=== PATIENT | female | born 1995 | race Asian ===

== ENCOUNTER 2021-07-10 03:14 | Inpatient (IN) ==
[2021-07-10] MEDS ORDERED: OXYTOCIN 30 UNITS/500 ML BAG IV PRN ×3 (03:43→16:51)
[2021-07-10] MEDS ORDERED: SODIUM CHLORIDE 0.9% INJ 10 ML VIAL ONE (04:00)
[2021-07-10] MEDS ORDERED: BUPIVACAINE 0.25% 30 ML VIAL ONE (04:00)
[2021-07-10] MEDS ORDERED: ePHEDrine sulfate 50 MG/ML AMP ONE (04:00)
[2021-07-10] MEDS: LACTATED RINGER'S 1,000 ML IV PRN ×3 (04:00→14:01)
[2021-07-10] MEDS ORDERED: fentaNYL citrate 100 MCG/2 ML VIAL ONE (04:00)
[2021-07-10] MEDS ORDERED: fentaNYL 2MCG/ML ROPIVACAINE 1.25MG/ML 100 ML BAG EPI ONE (04:01)
[2021-07-10 04:15] LABS: Hematocrit (blood only) 33.5 % (37-47); Hemoglobin 10.9 g/dL (12.0-16.0); Mean Corpuscular Hemoglobin 31.7 pg (25-34); Mean Corpuscular Hgb Conc 32.5 g/dL (32-36); Mean Corpuscular Volume 97.4 fL (80-100); Platelet Count 246 K/uL (130-400); RDW Coefficient of Variation 13.9 % (11.5-14.5); RDW Standard Deviation 49.5 fL (36.4-46.3); Red Blood Count 3.44 M/uL (4.2-5.4); White Blood Count 8.51 K/uL (4.8-10.8)
[2021-07-10] MEDS ORDERED: ONDANSETRON INJ 2 MG/ML 2 ML VIAL IV PRN (04:56)
[2021-07-10] MEDS ORDERED: NALBUPHINE HCL INJ 10 MG/ML AMP IV PRN (04:56)
[2021-07-10] MEDS ORDERED: NALOXONE HCL 1 MG in SODIUM CHLORIDE 0.9% 1000ML 1,000 ML IV PRN (04:56)
[2021-07-10] MEDS ORDERED: diphenhydrAMINE 50 MG/ML VIAL IV PRN (04:56)
[2021-07-10] MEDS ORDERED: fentaNYL 2MCG/ML ROPIVACAINE 1.25MG/ML 100 ML BAG EPI PRN (04:56)
[2021-07-10] MEDS ORDERED: PROMETHAZINE HCL 6.25 MG in SODIUM CHLORIDE 0.9% 50 ML IV PRN (04:56)
[2021-07-10] MEDS ORDERED: NALOXONE HCL 0.4 MG/1 ML VIAL/CARP IV PRN (04:56)
[2021-07-10] MEDS ORDERED: ePHEDrine sulfate 50 MG/ML AMP IV PRN (04:56)
--- NOTE | 2021-07-10 04:56 | Anesthesiology Consultation ---
Date of Service July 10, 2021 Assessment & Plan (1) Encounter for pre-operative examination: Chart Review Chart Review: Patient NOT seen in Pre Admission Testing and Acceptable Risk for Labor Epidural Consults Requested none ASA ASA2 Proposed Anesthesia Anesthesia Type: Labor Epidural Risk / Benefits Reviewed With: PT / POA / Parent / Guardian, Accepts Plan and Informed Consent Obtained History Height/Weight Height: 5 ft 4 in Weight: 60.781 kg Allergies Allergy/AdvReac Type Severity Reaction Status Date / Time No Known Allergies Allergy Verified 07/05/21 09:33 Medications Home Medications Medication Instructions Recorded Confirmed Last Taken vit no.105-iron 30 1 pkg 07/10/21 07/09/21 mg-folic acid 1.4 mg-dha 300 mg oral pack Active Medications Generic Name Dose Route Start Last Admin Trade Name Freq PRN Reason Stop Dose Admin Lactated Ringer's 1,000 mls @ 125 mls/hr 07/10/21 03:43 07/10/21 04:00 Lr IV 07/12/21 03:42 999 mls/hr .Q8H PRN Administration L&D Protocol Protocol Past Medical History Medical History (Updated 07/10/21 @ 04:55 by Wyatt Jimenez MD) No known problems Exercise / Class Metabolic Activity II 4-5 Yardwork/Stairs/Walk up hill Past Family History Family History Other No known problems Past Anesthesia History No Hx of Anesthesia Complications and No Family Hx of Anesthesia Complications History of PONV No Hx of PONV and No Hx of Motion Sickness Social History Smoking Status: Never smoker Hx Alcohol Use: No Hx Substance Use: No Physical Exam Vital Signs Last Vital Signs Temp 36.4 C L 07/10/21 03:56 Pulse 70 07/10/21 04:52 Resp 18 07/10/21 03:56 BP 86/56 L 07/10/21 04:52 Pulse Ox 100 07/10/21 04:49 ENMT Mouth: no dentition abnormality Thyromental Distance: > or= 3.5 Finger Breadths Mallampati Class: II Neck normal visual inspection Respiratory normal respiratory effort Auscultation: lungs clear to auscultation bilaterally Cardiovascular Rate/Rhythm: regular rate and regular rhythm Psychiatric Orientation: alert Testing Laboratory Results 07/10/21 04:06
--- NOTE | 2021-07-10 10:31 | Labor Progress Brief Note ---
Date of Service July 10, 2021 Arrived at 5 years in active labor at 40 weeks 5 days gestation group B strep negative at 7 in the morning her membranes were ruptured artificially and she was 7 cm she had an epidural at that stage subsequently restarted Pitocin as her contraction pattern space she has now a room at 0 station heart rate category 1 Assessment & Plan Admission and Anticipated Discharge Date Admission Date: July 10, 2021 Results & Data ([facility] Vital Signs (Past 12 Hours) Vital Signs Temp Pulse Resp BP Pulse Ox 07/10/21 10:24 64 99 07/10/21 10:19 65 98 07/10/21 10:18 63 99/60 L 07/10/21 10:15 18 07/10/21 10:14 64 98 07/10/21 10:09 63 98 07/10/21 10:04 65 99 07/10/21 10:03 62 101/61 07/10/21 10:00 18 07/10/21 09:59 75 99 07/10/21 09:54 63 98 07/10/21 09:49 62 98 07/10/21 09:48 65 97/59 L 07/10/21 09:45 18 07/10/21 09:44 63 97 07/10/21 09:39 62 98 07/10/21 09:34 58 L 98 07/10/21 09:33 60 98/59 L 07/10/21 09:30 18 07/10/21 09:29 62 100 07/10/21 09:24 78 99 07/10/21 09:19 70 98 07/10/21 09:18 65 100/61 07/10/21 09:15 18 07/10/21 09:14 66 99 07/10/21 09:09 69 98 07/10/21 09:04 67 95/65 L 98 07/10/21 09:00 18 07/10/21 08:59 67 99 07/10/21 08:54 65 97 07/10/21 08:49 66 101/62 99 07/10/21 08:45 18 07/10/21 08:44 67 97 07/10/21 08:39 63 100 07/10/21 08:34 63 100 07/10/21 08:33 66 97/65 L 07/10/21 08:30 18 07/10/21 08:29 62 100 07/10/21 08:24 69 98 07/10/21 08:19 70 100 07/10/21 08:18 60 104/62 07/10/21 08:15 18 07/10/21 08:14 66 99 07/10/21 08:09 67 99 07/10/21 08:04 66 99 07/10/21 08:03 61 103/60 07/10/21 08:00 18 07/10/21 07:59 67 98 07/10/21 07:54 67 99 07/10/21 07:49 71 99/57 L 99 07/10/21 07:45 18 07/10/21 07:44 68 100 07/10/21 07:39 69 99 07/10/21 07:34 69 99 07/10/21 07:33 62 100/66 07/10/21 07:30 18 07/10/21 07:29 66 100 07/10/21 07:24 77 100 07/10/21 07:20 68 93/57 L 07/10/21 07:19 98.2 F 73 18 99/62 L 100 07/10/21 07:14 64 18 99 07/10/21 07:09 83 100 07/10/21 07:04 77 100 07/10/21 07:03 78 99/57 L 07/10/21 06:59 73 99 07/10/21 06:54 67 99 07/10/21 06:49 69 99 07/10/21 06:48 69 100/60 07/10/21 06:44 68 99 07/10/21 06:39 69 99 07/10/21 06:34 69 99 07/10/21 06:33 80 95/59 L 07/10/21 06:29 69 99 07/10/21 06:24 71 98 07/10/21 06:19 69 99 07/10/21 06:18 69 100/61 07/10/21 06:14 78 100 07/10/21 06:09 79 99 07/10/21 06:04 74 101/59 L 99 07/10/21 05:59 67 99 07/10/21 05:54 74 100 07/10/21 05:49 78 100 07/10/21 05:48 71 97/56 L 07/10/21 05:44 67 100 07/10/21 05:39 68 99 07/10/21 05:34 65 99 07/10/21 05:31 66 104/58 L 07/10/21 05:29 64 100 07/10/21 05:25 68 110/60 07/10/21 05:24 71 99 07/10/21 05:20 73 103/63 07/10/21 05:19 69 99 07/10/21 05:14 81 100 07/10/21 05:13 65 118/68 07/10/21 05:11 67 115/65 07/10/21 05:09 65 120/61 100 07/10/21 05:07 67 116/62 07/10/21 05:05 66 118/56 L 07/10/21 05:04 76 100 07/10/21 05:03 64 116/62 07/10/21 05:02 80 160/69 H 07/10/21 04:59 78 90/62 L 100 07/10/21 04:57 74 81/50 L 07/10/21 04:55 65 85/54 L 07/10/21 04:54 67 100 07/10/21 04:52 70 86/56 L 07/10/21 04:49 76 107/52 L 100 07/10/21 04:47 78 105/55 L 07/10/21 04:45 71 92/53 L 07/10/21 04:44 71 100 07/10/21 04:43 80 93/53 L 07/10/21 04:41 69 93/54 L 07/10/21 04:39 76 100 07/10/21 03:56 97.5 F L 66 18 107/64 07/10/21 03:33 97.5 F L 66 18 107/64 Coding Level of Care Code None
--- NOTE | 2021-07-10 15:39 | Delivery Summary ---
Vaginal Delivery Summary Date of Service July 10, 2021 Vaginal Delivery Summary VAVD Patient pushing for several hours and was lines +2 patient reached exhaustion I offered a vacuum assistance and the patient agreed her bladder benign emptied 45 minutes earlier I checked the position was occiput anterior +2 station there was some minor caput but no signs of significant capsular pelvic disproportion the vacuum was applied on one pole I was able to move the head to the point of de livery at the perineum there was a tight fit there so a small right medial lateral episiotomy was performed baby was then delivered on that same pole with the vacuum vacuum was detached mouth and nares then nares suctioned baby was delivered by gentle traction there was a loose body cord passed over the baby's head live vigorous female infant cord clamped and cut cord gases obtained cord blood obtained placenta removed with traction IV Pitocin started right medial lateral episiotomy repaired with 3-0 Vicryl oxytocin was started and hemostasis improved uterine tone improved sponge and instrument counts correct estimated blood loss 250 mL [facility] Vaginal Delivery Charge Vaginal Delivery Codes: 44391 global code for the antepartum, delivery, and post- Delivery Type Details: VAVD Procedure Anesthesia type: Epidural
[2021-07-10 15:57] LABS: Base Excess Cord Arterial Bld -3.2 mEq/L (-9-1.8); CO2 Cord Arterial Blood 42 mmHg (39.1-73.5); HCO3 Cord Arterial Blood 22 mmol/L (19.7-28.5); PO2 Cord Arterial Blood 27 mmHg (4.1-31.7); pH Cord Arterial Blood 7.35 (7.1-7.38)
[2021-07-10 16:01] LABS: Base Excess Cord Venous Blood -3.2 mEq/L (-7.7-1.9); Cord Venous Blood HCO3 21 mmol/L (18.4-26.8); Cord Venous Blood PCO2 34 mmHg (30.4-57.2); Cord Venous Blood PO2 37 mmHg (14.1-43.3)
[2021-07-10 16:03] LABS: Oxygen Sat Cord Arterial Blood < 60.0 % (<60)
--- NOTE | 2021-07-10 16:37 | Anesthesia Procedure Note ---
Date of Service July 10, 2021 Anesthesia Post Epidural Note Vital Signs Vital Signs: Temp Pulse Resp BP Pulse Ox 37.6 C H 76 18 103/56 L 95 07/10/21 15:12 07/10/21 16:33 07/10/21 15:50 07/10/21 16:33 07/10/21 15:27 Pain Intensity Lower Abdomen: Pain Intensity: 6 Notes Mental Status: alert / awake / arousable and participated in evaluation Nausea / Vomiting: adequately controlled Pain: adequately controlled Airway Patency, RR, SpO2: stable & adequate BP & HR: stable & adequate Hydration State: stable & adequate Neuraxial Anesthesia: was administered and sensory block is resolving Anesthetic Complications: no major complications apparent Epidural: Removed without complications and With tip intact
[2021-07-10] MEDS ORDERED: BENZOCAINE 20% AER SPR 82.5 GM CAN EXT PRN (16:51)
[2021-07-10] MEDS ORDERED: oxyCODONE/ACETAMINOPHEN 5mg/325mg TAB PO PRN (16:51)
[2021-07-10] MEDS ORDERED: ACETAMINOPHEN 325 MG TAB PO PRN (16:51)
[2021-07-10] MEDS ORDERED: SUPERCREAM 0.870% 15 GM JAR EXT PRN (16:51)
[2021-07-10] MEDS ORDERED: HYDROCORTISONE ACETATE 25 MG SUPP PR PRN (16:51)
[2021-07-10] MEDS ORDERED: DIPHTHERIA/TETANUS/PERTUSSIS 0.5 ML SYR/VIAL IM ONE (16:51)
[2021-07-10] MEDS: DOCUSATE SODIUM 100 MG CAP PO SCH (20:19)
--- NOTE | 2021-07-11 06:51 | Obstetrical Progress Note ---
Date of Service July 11, 2021 Assessment & Plan (1) Encounter for care and examination after delivery: Plan: 26yo PPD 1 s/p VAVD at 41 weeks -Continue routine care -Vitals reviewed- afebrile, continue to monitor BP -Encourage ambulation, regular diet -Pain control with ibuprofen, acetaminophen PRN -Encourage -Hgb yesterday 10.9 -discharge likely tomorrow, will continue to monitor today Admission and Anticipated Discharge Date Admission Date: July 10, 2021 Supervising Physician Co-Signing Physician Notes Resident Physician Supervision Note: I was present with [Name of resident] during the history and exam. I discussed the case with the resident and agree with the findings and plan as documented in the note. Any exceptions or clarifications are listed here: [None] Documented By: Little Francois MD, FACOG Subjective PPD 1 s/p VAVD. Patient seen and examined at bedside. Reports no acute overnight events. Not yet ambulating. Voiding, passing stool and gas without complaints. Regular diet w/o N/V. Some bleeding, but less than yesterday. Breast Feeding. Moderate pelvic pain, especially near stitch site. Review of Systems Review of Systems: Denies fevers/chills. Denies dyspnea, cough. Denies chest pain. Denies breast pain or discharge. Denies dysuria. Denies headache. Denies back pain. Physical Exam Physical Exam: General: Alert, oriented, no acute distress Cardiac: Regular rate and rhythm, normal S1, S2. No murmurs appreciated. Respiratory: Clear to auscultation b/l with good air flow entry, symmetric chest rise and fall. No wheezes or crackles. No increased work of breathing or accessory muscle use Abdomen: Soft, mildly TTP, nondistended. Fundus firm and palpable at 1 cm below umbilicus. No guarding or rebound. Skin: No rashes or lesions. Extremities: Warm, dry, well-perfused with capillary refill <2s b/l. No lower extremity edema, erythema or swelling. Negative Najma's sign b/l. Results & Data ([facility]) Vital Signs (Past 12 Hours) Vital Signs Temp Pulse Resp BP Pulse Ox 07/11/21 03:20 36.6 C 89 18 92/52 L 99 07/10/21 23:50 37.0 C 84 18 93/60 L 99 07/10/21 19:25 37.5 C 91 H 18 99/67 L 99 Resident Activity Tracking Resident Involvement: Resident Care Provided Care Provided: OB Delivery
[2021-07-11 07:14] LABS: Hematocrit (blood only) 26.1 % (37-47); Hemoglobin 8.7 g/dL (12.0-16.0); Mean Corpuscular Hemoglobin 31.8 pg (25-34); Mean Corpuscular Hgb Conc 33.3 g/dL (32-36); Mean Corpuscular Volume 95.3 fL (80-100); Mean Platelet Volume 10.2 fL (7.4-10.4); Platelet Count 211 K/uL (130-400); RDW Coefficient of Variation 14.1 % (11.5-14.5); RDW Standard Deviation 48.7 fL (36.4-46.3); Red Blood Count 2.74 M/uL (4.2-5.4); White Blood Count 15.63 K/uL (4.8-10.8)
[2021-07-11] MEDS: PRENATAL VITAMIN 1 TAB PO SCH (07:57)
[2021-07-11] MEDS: DOCUSATE SODIUM 100 MG CAP PO SCH ×2 (07:57→19:36)
[2021-07-11] MEDS: IBUPROFEN 600 MG TAB PO PRN ×2 (09:55→19:36)
--- NOTE | 2021-07-11 12:01 | Obstetrical Progress Note ---
Date of Service July 11, 2021 Assessment & Plan (1) Encounter for care and examination after delivery: Plan: Does not look like hematoma but L labia does appear more swollen. Given pain, will obtain CBC however encourage pain medication and ice as well as has not really used any of it thus far. Will recheck following return of labs Admission and Anticipated Discharge Date Admission Date: July 10, 2021 Subjective Nursing noted that pt had increased pain on bottom from this AM. Nursing also noted that swelling had increased on L vulva compared to this AM when it was more even. Pt notes more pain on the L side as well, has not taken much in terms of pain meds or ice packs. Delivery was c/b R mediolateral epis from [facility] Physical Exam Genitourinary: L labia majora does appear more swollen than R, still soft though. Does not appear to be bruised, palpation on inside of vagina with the labia does not palpate mass within the labia. Results & Data ([facility]) Vital Signs (Past 12 Hours) Vital Signs Temp Pulse Resp BP Pulse Ox 07/11/21 07:15 98.4 F 82 18 92/55 L 07/11/21 03:20 97.9 F 89 18 92/52 L 99 PG Care Time/CCT Total # of Minutes Spent Total Time Spent with Patient: Total time spent is greater than 50% in coordination of care (as documented) at patient's floor/unit and/or counseling patient: Coding Level of Care Code None Diagnoses Encounter for care and examination after delivery Z39.2
[2021-07-11 12:31] LABS: Hematocrit (blood only) 27.4 % (37-47); Hemoglobin 9.1 g/dL (12.0-16.0); Mean Corpuscular Volume 96.5 fL (80-100); Mean Platelet Volume 9.9 fL (7.4-10.4); Platelet Count 217 K/uL (130-400); RDW Standard Deviation 49.1 fL (36.4-46.3); Red Blood Count 2.84 M/uL (4.2-5.4); White Blood Count 15.09 K/uL (4.8-10.8)
[2021-07-11 12:37] LABS: Mean Corpuscular Hgb Conc 33.2 g/dL (32-36)
--- NOTE | 2021-07-11 14:03 | Obstetrical Progress Note ---
Date of Service July 11, 2021 Assessment & Plan (1) Encounter for care and examination after delivery: Plan: Feeling much better, CBC reassuring. Continue ice packs, pain control Admission and Anticipated Discharge Date Admission Date: July 10, 2021 Subjective Pt feeling better, reporting pain now at 5 (was previously 7-8). CBC was improved from this AM Results & Data ([facility]) Vital Signs (Past 12 Hours) Vital Signs Temp Pulse Resp BP Pulse Ox 07/11/21 12:15 97.7 F 67 20 99/62 L 07/11/21 07:15 98.4 F 82 18 92/55 L 07/11/21 03:20 97.9 F 89 18 92/52 L 99 PG Care Time/CCT Total # of Minutes Spent Total Time Spent with Patient: Total time spent is greater than 50% in coordination of care (as documented) at patient's floor/unit and/or counseling patient: Coding Level of Care Code None Diagnoses Encounter for care and examination after delivery Z39.2
[2021-07-11] MEDS ORDERED: bisacodyL 5 MG TABEC PO SCH (20:00)
[2021-07-12 06:44] LABS: Hematocrit (blood only) 25.8 % (37-47); Hemoglobin 8.5 g/dL (12.0-16.0)
--- NOTE | 2021-07-12 07:58 | Obstetrical Progress Note ---
Date of Service July 12, 2021 Assessment & Plan (1) Encounter for care and examination after delivery: Plan: 26yo PPD 2 s/p VAVD at 41 weeks -Continue routine care -Vitals reviewed- afebrile, continue to monitor BP, stable -Encourage ambulation, regular diet -Pain control with ibuprofen, acetaminophen PRN -Encourage -Hgb yesterday 10.9 --> 8.7 --> 9.1 --> 8.5 (this morning) -likely discharge this afternoon -f/u in OB clinic in 6 weeks Admission and Anticipated Discharge Date Admission Date: July 10, 2021 Supervising Physician Co-Signing Physician Notes Patient seen and evaluated and agree with the above findings and plan. Stable for discharge Subjective PPD 2 s/p VAVD with episiotomy. Patient feeling better this morning from yesterday. Pain level reduced from 5/10 yesterday afternoon to about a 3-4/10 this morning. Less pain near stitch site from episiotomy, minimal bleeding. Hgb dropped to 8.5 this morning. She would like to go home this afternoon if possible. Review of Systems Review of Systems: Denies fevers/chills. Denies dyspnea, cough. Denies chest pain. Denies breast pain or discharge. Denies dysuria. Denies headache or fatigue. Denies back pain. Physical Exam Physical Exam: General: Alert, oriented, no acute distress Cardiac: Regular rate and rhythm, normal S1, S2. No murmurs appreciated. Respiratory: Clear to auscultation b/l with good air flow entry, symmetric chest rise and fall. No wheezes or crackles. No increased work of breathing or accessory muscle use Abdomen: Soft, mildly TTP, nondistended. Fundus firm and palpable at 2 cm below umbilicus. No guarding or rebound. Skin: No rashes or lesions. Extremities: Warm, dry, well-perfused with capillary refill <2s b/l. No lower extremity edema, erythema or swelling. Negative Najma's sign b/l. Results & Data ([facility]) Vital Signs (Past 12 Hours) Vital Signs Temp Pulse Resp BP Pulse Ox 07/12/21 07:35 36.4 C L 72 16 94/56 L 07/11/21 23:20 36.7 C 88 16 90/53 L 98 Resident Activity Tracking Resident Involvement: Resident Care Provided Care Provided: OB Delivery
[2021-07-12] MEDS: DOCUSATE SODIUM 100 MG CAP PO SCH (08:28)
[2021-07-12] MEDS: PRENATAL VITAMIN 1 TAB PO SCH (08:29)
[2021-07-12] MEDS: IBUPROFEN 600 MG TAB PO PRN ×2 (08:29→13:42)
[2021-07-12] MEDS ORDERED: bisacodyL 10 MG SUPP PR PRN (16:54)
== END 2021-07-12 14:23 | disposition home or self-care (01) | DRG 807 ==
LOC: OPB 03:14 → 4S1 03:18 → 4S2 18:33